=== PATIENT | male | born 1950 | race Caucasian/White ===

== ENCOUNTER 2016-07-15 11:16 | Emergency (ER) ==
[2016-07-15 11:23] VITALS: BP 166/105; TEMP 97.3; BMI 32.5
[2016-07-15] MEDS ORDERED: SODIUM CHLORIDE 1,000 ML IV STA ×2 (11:55→14:39)
[2016-07-15] MEDS ORDERED: ZOFRAN 4 MG/2 ML IVP STA (11:56)
[2016-07-15 12:06] LABS: BASOPHILS % (AUTO) 0.3 % (0.0-3.0); EOSINOPHILS # (AUTO) 0.3 K/ul (0.0-0.7); EOSINOPHILS % (AUTO) 4.1 % (0.0-7.0); HEMOGLOBIN 16.2 g/dl (14.0-18.0); IMMATURE GRANULOCYTE % (AUTO) 0.8 % (0.0-5.0); LYMPHOCYTES # (AUTO) 1.7 K/uL (0.60-3.4); MEAN CORPUSCULAR HEMOGLOBIN 30.3 pg (27.0-31.0); MEAN CORPUSCULAR HGB CONC 35.2 (31.8-35.4); MONOCYTES # (AUTO) 0.5 K/uL (0.4-2.0); MONOCYTES % (AUTO) 7.5 (0-10); NEUTROPHILS # (AUTO) 3.6 K/ul (2.0-6.9); NEUTROPHILS % (AUTO) 59.3; PLATELET COUNT 154 10^3/uL (140-440); RED BLOOD COUNT 5.35 10^6/ul (4.70-6.10); WHITE BLOOD COUNT 6.04 K/ul (4.2-10.2)
[2016-07-15] MEDS ORDERED: ALBUTEROL 0.083% NEB NEB STA (12:11)
[2016-07-15 12:35] LABS: ABG BASE EXCESS 1 (-2.0-2.0); ABG HCO3 25.1 (22.0-26.0); ABG PH 7.451 (7.35-7.45); ABG TCO2 26 (22.0-28.0)
[2016-07-15 12:35] LABS: ALBUMIN 3.8 g/dL (3.4-5.0); ALBUMIN/GLOBULIN RATIO 1.19; ANION GAP 12.4; BILIRUBIN,TOTAL 0.74 mg/dL (0.00-1.20); BUN/CREATININE RATIO 10.76; CALCIUM 9.6 mg/dL (8.2-10.2); CREATININE 1.3 mg/dL (0.60-1.10); POTASSIUM 4.4 mmol/L (3.5-5.1)
[2016-07-15 12:39] LABS: CREATINE KINASE 72 U/L
--- NOTE | 2016-07-15 13:35 | DI ---
EXAM: Chest one view HISTORY: Chest pain COMPARISON: 03/25/2014 TECHNIQUE: Single view of the chest was performed FINDINGS: The lungs are clear. There is no pleural effusion or pneumothorax. The heart is normal in size. The mediastinal contour is normal. There are no acute abnormalities of the bones. There i s cervical spinal fusion hardware. IMPRESSION: No acute cardiopulmonary process.
--- NOTE | 2016-07-15 14:36 | ED.PDOC ---
General ED Provider: Dr. PRATIBHA MEDRANO JR Chief Complaint: Nausea/Vomiting Stated Complaint: NAUSEA/VOMITING/DIARRHEA, COUGH, RIGHT EAR PAIN. [ End ]3 DAYS 97.3 67 16 97% 166/105 07/08 Time Seen by Physician: 12:05 Mode of Arrival: Walk-In Information Source: Patient Exam Limitations: Clinical condition Primary Care Provider: NINO PARIKH Nursing and Triage Documentation Reviewed and Agree: No Review of Systems - Review Of Systems Constitutional: Reports: Malaise, Weakness Eyes: Reports: No symptoms Ears, Nose, Mouth, Throat: Reports: Ear pain Respiratory: Reports: Cough, Short of air, Wheezing (WHEEZING WITH NONPRODUCTIVE COUGH) Cardiac: Reports: Lightheadedness GI: Reports: Abdominal pain, Diarrhea, Nausea, Vomiting : Reports: No symptoms Musculoskeletal: Reports: No symptoms Skin: Reports: No symptoms Neurological: Reports: No symptoms Endocrine: Reports: No symptoms Hematologic/Lymphatic: Reports: No symptoms All Other Systems: Other Past Medical History - Past Medical History Endocrine: Reports: None Cardiovascular: Reports: Hypertension 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) Hematological: Reports: None Gastrointestinal: Reports: Other ( IBS ) Genitourinary: Reports: None Neuro/Psych: Reports: None Musculoskeletal: Reports: None Cancer: Reports: None - Surgical History General Surgical History: Reports: Unknown - Family History Family History: Reports: Unknown - Social History Smoking Status: Former smoker Hx Substance Use: No Alcohol Screening: None Physical Exam - Physical Exam Appearance: Ill-appearing, Obese Ill-appearing: Moderate Pain Distress: Moderate Eyes: ALYSSA, EOMI, Conjunctiva clear ENT: Ears normal, Nose normal, Oropharynx normal Neck: Supple Respiratory: Rhonchi, Wheezes Cardiovascular: RRR, Pulses normal, No rub, No murmur GI/: Soft, No masses, Bowel sounds normal, No Organomegaly, Tender Musculoskeletal: Normal strength, ROM intact, No edema, No calf tenderness Skin: Warm, Dry, Normal color Neurological: Sensation intact, Motor intact, Reflexes intact, Cranial nerves intact, Alert, Oriented Psychiatric: Affect appropriate, Mood appropriate Critical Care Note - Critical Care Note Total Time (mins): 10 Course - Course Hematology/Chemistry: 07/15/16 12:00 07/15/16 12:00 Orders, Labs, Meds: Lab Review 07/15/16 07/15/16 12:00 12:20 WBC 6.04 RBC 5.35 Hgb 16.2 Hct 46.0 MCV 86.0 MCH 30.3 MCHC 35.2 RDW Coeff of Myrna 13.1 Plt Count 154 Immature Gran % (Auto) 0.8 Neut % (Auto) 59.3 Lymph % (Auto) 28.0 [place] % (Auto) 7.5 Eos % (Auto) 4.1 Baso % (Auto) 0.3 Immature Gran # (Auto) 0.1 Neut # 3.6 Lymph # 1.7 [place] # 0.5 Eos # 0.3 Baso # 0.0 D-Dimer (Manual) 518.55 Puncture Site R rad O2 Saturation 99.0 ABG pH 7.451 H ABG pCO2 36.0 ABG pO2 139.0 H ABG HCO3 25.1 ABG Total CO2 26 ABG Base Excess 1 [facility] Test + FiO2 % 21.0 Sodium 141 Potassium 4.4 Chloride 105 Carbon Dioxide 28 Anion Gap 12.4 BUN 14 Creatinine 1.30 H Estimated GFR (MDRD) 55.00 BUN/Creatinine Ratio 10.76 Glucose 96 Calcium 9.6 Total Bilirubin 0.74 AST 21 ALT 29 Alkaline Phosphatase 62 Total Creatine Kinase 72 Troponin I < 0.0100 B-Natriuretic Peptide < 10 Total Protein 7.0 Albumin 3.8 Globulin 3.2 Albumin/Globulin Ratio 1.19 Amylase 72 Lipase 34 Procalcitonin < 0.05 Orders Category Date Time Status ABG DRAW REQUEST Stat CARDIO 07/15/16 12:10 Completed EKG-(ED ONLY) Stat CARDIO 07/15/16 12:09 Completed NEBULIZER TREATMENT Stat CARDIO 07/15/16 12:11 Completed NPO REMINDER: IMAGING ONCE CARE 07/15/16 13:11 Active ED TURKEY EGG GATHERER APPLIED .ONCE EMERGENCY 07/15/16 12:09 Active ED IV/MEDIPORT/POWERPORT .ONCE EMERGENCY 07/15/16 11:55 Active ABG Stat LAB 07/15/16 12:20 Completed AMYLASE Stat LAB 07/15/16 12:00 Completed B-TYPE NATRIURETIC PEPTIDE Stat LAB 07/15/16 12:00 Completed BLOOD CULTURE Stat LAB 07/15/16 12:25 Received CBC W/ AUTO DIFF Stat LAB 07/15/16 12:00 Completed COMPREHENSIVE METABOLIC PANEL Stat LAB 07/15/16 12:00 Completed CREATINE KINASE Stat LAB 07/15/16 12:00 Completed D-DIMER Stat LAB 07/15/16 12:00 Completed LIPASE Stat LAB 07/15/16 12:00 Completed PROCALCITONIN Stat LAB 07/15/16 12:00 Completed TROPONIN I Stat LAB 07/15/16 12:00 Completed URINALYSIS C & S IF INDICATED Stat LAB 07/15/16 11:56 Uncollected 0.9 % Sodium Chloride [Saline Flush] MEDS 07/15/16 11:55 Active 1 syr IVF PRN PRN Albuterol Sulfate 0.083% Neb [Albuterol 0.083% Neb] MEDS 07/15/16 12:11 Discontinued 1 vial NEB ONCE STA Methylprednisolone Sod Succ/Pf [Solu-Medrol 125 mg] MEDS 07/15/16 15:00 Discontinued 125 mg IVP ONCE STA Ondansetron HCl/Pf [Zofran 4 mg/2 ml] MEDS 07/15/16 11:56 Discontinued 4 mg IVP ONCE STA Sodium Chloride 0.9% [Sodium Chloride] 1,000 ml MEDS 07/15/16 14:39 Active IV 200 mls/hr Sodium Chloride 0.9% [Sodium Chloride] 1,000 ml MEDS 07/15/16 11:55 Discontinued IV BOLUS CHEST, 1V AP ONLY Stat RADS 07/15/16 12:09 Completed Medications Generic Name Dose Route Start Last Admin Trade Name Freq PRN Reason Stop Dose Admin Sodium Chloride 1,000 mls @ 200 mls/hr 07/15/16 14:39 07/15/16 14:48 Sodium Chloride IV 07/15/16 19:38 200 mls/hr .Q5H STA Administration Sodium Chloride 1 syr 07/15/16 11:55 Saline Flush IVF PRN PRN To flush IV Discontinued Medications Generic Name Dose Route Start Last Admin Trade Name Freq PRN Reason Stop Dose Admin Albuterol Sulfate 1 vial 07/15/16 12:11 07/15/16 12:23 Albuterol 0.083% Neb NEB 07/15/16 12:12 1 vial ONCE STA Administration Sodium Chloride 1,000 mls @ 1,000 mls/hr 07/15/16 11:55 07/15/16 13:08 Sodium Chloride IV 07/15/16 12:54 1,000 mls/hr BOLUS STA Administration Methylprednisolone Sodium Succinate 125 mg 07/15/16 15:00 Solu-Medrol 125 Mg IVP 07/15/16 15:01 ONCE STA Ondansetron HCl 4 mg 07/15/16 11:56 07/15/16 13:07 Zofran 4 Mg/2 Ml IVP 07/15/16 11:57 4 mg ONCE STA Administration Vital Signs: Temp Pulse Resp BP Pulse Ox 07/15/16 11:19 97.3 F L 67 16 166/105 H 97 Departure - Departure Time of Disposition: 15:27 Disposition: HOME SELF-CARE Discharge Problem: URTI (acute upper respiratory infection) Instructions: Upper Respiratory Infection (ED) Condition: Fair Pt referred to PMD for follow-up: Yes Additional Instructions: PHENERGAN FOR NAUSEA TESSLON FOR COUGH ALBUTEROL THREE TIMES A DAY NEBULIZED FOR THREE DAYS THEN NEEDED RECHECK PMD ONE WEEK RETURN IF SHORT OF BREATH LEG SWELLING OR FEVER OVER 101.0 Prescriptions: Azithromycin [Zithromax] 250 mg PO DIRECTED #6 tablet Benzonatate [Tessalon Perles] 200 mg PO TID PRN #20 capsule PRN Reason: Cough Promethazine HCl [Phenergan Tab] 25 mg PO QID PRN #12 tablet PRN Reason: Nausea / Vomiting Allergies/Adverse Reactions: Allergies codeine Allergy (Intermediate, Unverified 07/15/16 11:17) Rash Penicillins Allergy (Intermediate, Unverified 07/15/16 11:17) Unknown Home Medications: Ambulatory Orders Metoprolol Succinate 100 mg PO DAILY 10/05/13 Pantoprazole Sodium [Protonix] 40 mg PO DAILY 04/10/15 Azithromycin [Zithromax] 250 mg PO DIRECTED #6 tablet 07/15/16 Benzonatate [Tessalon Perles] 200 mg PO TID PRN #20 capsule 07/15/16 Promethazine HCl [Phenergan Tab] 25 mg PO QID PRN #12 tablet 07/15/16
[2016-07-15] MEDS ORDERED: SOLU-MEDROL 125 MG IVP STA (15:00)
== END 2016-07-15 15:59 | disposition home or self-care (01) ==
LOC: ED 11:16
DX: J06.9 Acute upper respiratory infection, unspecified (principal); R06.02 Shortness of breath; I10 Essential (primary) hypertension; R11.2 Nausea with vomiting, unspecified; R19.7 Diarrhea, unspecified; Z79.899 Other long term (current) drug therapy
CPT/HCPCS: 36415; 80053; 82150; 82550; 82803; 83690; 83880; 84145; 84484; 85025; 85379; 87040; 93005; 93010; 94640; 96361; 96374; 99283

== ENCOUNTER 2016-07-23 11:18 | Outpatient (CLI) | END 2016-07-23 11:19 | disposition home or self-care (01) | LOC: LAB 11:18 | PROVIDERS: ATTEND Family Medicine | DX: R19.7 Diarrhea, unspecified (principal) | CPT/HCPCS: 87015; 87045; 87493; 87899 ==

== ENCOUNTER 2018-05-07 23:56 | Emergency (ER) ==
[2018-05-08] MEDS ORDERED: DUONEB NEB STA (00:20)
[2018-05-08] MEDS ORDERED: TESSALON PERLES PO STA (00:20)
--- NOTE | 2018-05-08 01:48 | ED.PDOC ---
General ED Provider: Dr. DARYA MILLS Chief Complaint: Cough Stated Complaint: patient complains of 4 day history of cough. Was prescribed Azithromycin and Steroids today but has not taken them. [place] short of breath hence came to the ER. Also complains of chest tightness. Time Seen by Physician: 00:15 Information Source: Patient, Family Primary Care Provider: NINO PARIKH Nursing and Triage Documentation Reviewed and Agree: Yes Does patient meet sepsis criteria?: No If yes, has appropriate treatment been initiated?: No System Inflammatory Response Syndrome: Not Applicable Sepsis Protocol: For patient's 13 years and over: Temp is 96.8 and below OR 101 and greater Pulse >90 BPM Resp >20/minute Acutely Altered Mental Status Are patient's symptoms suggestive of a new infection, such as: -Pneumonia -Skin, Soft Tissue -Endocarditis -UTI -Bone, Joint Infection -Implantable Device -Acute Abdominal Infection -Wound Infection -Meningitis -Blood Stream Catheter Infection -Unknown Respiratory Complaint Exam - Shortness of Air Complaint/Exam Onset/Duration: 4 days Symptoms Are: Still present Timing: Constant Initial Severity: Moderate Current Severity: Moderate Character: Reports: Dyspnea at rest Aggravating: Reports: Weather Alleviating: Reports: None Associated Signs and Symptoms: Reports: Cough, Wheezing Related History: Denies: Similar episode, Allergic reaction, Recent trauma History of Healthcare-Acquired Pneumonia: No Pulmonary Embolism Risk Factors: Reports: None Cardiac Risk Factors: Reports: None Pseudomonas Risk Factors: Reports: None Tuberculosis Risk Factors: Reports: None Home Oxygen Use: No Recent Stress Test: No Recent Echo/LV Function: No Stridor Present: No Tracheal Deviation: No Subcutaneous Emphysema: No Accessory Muscle Use: No Retractions: Not Present Diminished Breath Sounds: No Prolonged Expiratory Phase: No Unable to Speak Full Sentences: No Fatigue: No Leg Swelling: No Bernadette's Sign Present: No Grunting Respirations: No Kussmaul Respirations: No Differential Diagnoses: Pneumonia, Bronchitis Review of Systems - Review Of Systems Constitutional: Reports: No symptoms Eyes: Reports: No symptoms Ears, Nose, Mouth, Throat: Reports: No symptoms Respiratory: Reports: Cough, Short of air Cardiac: Reports: No symptoms GI: Reports: No symptoms : Reports: No symptoms Musculoskeletal: Reports: No symptoms Skin: Reports: No symptoms Neurological: Reports: Anxiety Endocrine: Reports: No symptoms Hematologic/Lymphatic: Reports: No symptoms All Other Systems: Reviewed and Negative Past Medical History - Past Medical History Endocrine: Reports: None Cardiovascular: Reports: Hypertension 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) Hematological: Reports: None Gastrointestinal: Reports: Other ( IBS ) Genitourinary: Reports: None Neuro/Psych: Reports: None Musculoskeletal: Reports: None Cancer: Reports: None - Surgical History General Surgical History: Reports: None - Family History Family History: Reports: None - Social History Smoking Status: Former smoker Hx Substance Use: No Alcohol Screening: None Physical Exam - Physical Exam Appearance: Well-appearing, Obese Neck: Supple Respiratory: Wheezes (expiratory wheezing ) GI/: Soft, Nontender, No masses, Bowel sounds normal, No Organomegaly Musculoskeletal: Normal strength, ROM intact, No edema, No calf tenderness Skin: Warm, Dry, Normal color Neurological: Sensation intact, Motor intact, Reflexes intact, Cranial nerves intact, Alert, Oriented Psychiatric: Anxious Critical Care Note - Critical Care Note Total Time (mins): 0 Course - Course Hematology/Chemistry: 05/08/18 00:40 05/08/18 00:40 Orders, Labs, Meds: Lab Review 05/08/18 05/08/18 05/08/18 00:40 00:40 00:40 WBC 12.09 H RBC 5.19 Hgb 15.2 Hct 44.3 MCV 85.4 MCH 29.3 MCHC 34.3 RDW Coeff of Myrna 42.0 H Plt Count 131 L Immature Gran % (Auto) 0.1 Neut % (Auto) 79.8 Lymph % (Auto) 11.7 [place] % (Auto) 6.9 Eos % (Auto) 0.2 Baso % (Auto) 0.2 Immature Gran # (Auto) 1.2 H Neut # (Auto) 9.7 H Lymph # (Auto) 1.4 [place] # (Auto) 0.8 Eos # (Auto) 0.0 Baso # (Auto) 0.0 D-Dimer (Manual) 238.80 Sodium 136.0 Potassium 4.47 Chloride 98.8 Carbon Dioxide 23.9 Anion Gap 17.77 BUN 27.7 H Creatinine 1.22 H Estimated GFR (MDRD) 59.00 BUN/Creatinine Ratio 22.70 Glucose 176.3 H Lactic Acid Calcium 9.37 Total Bilirubin 0.55 AST 29.4 ALT 45.3 Alkaline Phosphatase 82.6 Total Creatine Kinase 250.2 H CK-MB (CK-2) 2.730 H CK-MB (CK-2) % 1.0900 Troponin I 0.023 NT-Pro-B Natriuret Pep 38.500 Total Protein 7.07 Albumin 4.19 Globulin 2.88 Albumin/Globulin Ratio 1.45 Procalcitonin 05/08/18 05/08/18 00:40 00:40 WBC RBC Hgb Hct MCV MCH MCHC RDW Coeff of Myrna Plt Count Immature Gran % (Auto) Neut % (Auto) Lymph % (Auto) [place] % (Auto) Eos % (Auto) Baso % (Auto) Immature Gran # (Auto) Neut # (Auto) Lymph # (Auto) [place] # (Auto) Eos # (Auto) Baso # (Auto) D-Dimer (Manual) Sodium Potassium Chloride Carbon Dioxide Anion Gap BUN Creatinine Estimated GFR (MDRD) BUN/Creatinine Ratio Glucose Lactic Acid 1.94 Calcium Total Bilirubin AST ALT Alkaline Phosphatase Total Creatine Kinase CK-MB (CK-2) CK-MB (CK-2) % Troponin I NT-Pro-B Natriuret Pep Total Protein Albumin Globulin Albumin/Globulin Ratio Procalcitonin < 0.05 Orders Category Date Time Status EKG-(ED ONLY) Stat CARDIO 05/08/18 02:23 Completed NEBULIZER TREATMENT Stat CARDIO 05/08/18 00:20 Completed BLOOD CULTURE Stat LAB 05/08/18 01:00 Ordered CBC W/ AUTO DIFF Stat LAB 05/08/18 00:40 Completed COMPREHENSIVE METABOLIC PANEL Stat LAB 05/08/18 00:40 Completed CREATINE KINASE Stat LAB 05/08/18 00:40 Completed D-DIMER Stat LAB 05/08/18 00:40 Completed LACTIC ACID Stat LAB 05/08/18 00:40 Completed NT-PROBNP Stat LAB 05/08/18 00:40 Completed PROCALCITONIN Stat LAB 05/08/18 00:40 Completed TROPONIN I Stat LAB 05/08/18 00:40 Completed Benzonatate [Tessalon Perles] MEDS 05/08/18 00:20 Discontinued 200 mg PO ONCE STA Dexamethasone 4 mg/ml Inj [Decadron 4 mg/ml Sdv] MEDS 05/08/18 02:07 Discontinued 8 mg IM ONCE STA Ipratropium/Albuterol Neb [Duoneb] MEDS 05/08/18 00:20 Discontinued 1 vial NEB ONCE STA CHEST, 2 VIEWS PA & LAT Stat RADS 05/08/18 00:30 Completed Medications Discontinued Medications Generic Name Dose Route Start Last Admin Trade Name Freq PRN Reason Stop Dose Admin Albuterol/Ipratropium 1 vial 05/08/18 00:20 05/08/18 00:25 Duoneb NEB 05/08/18 00:21 1 vial ONCE STA Administration Benzonatate 200 mg 05/08/18 00:20 05/08/18 00:30 Tessalon Perles PO 05/08/18 00:21 200 mg ONCE STA Administration Dexamethasone Sodium Phosphate 8 mg 05/08/18 02:07 05/08/18 02:17 Decadron 4 Mg/Ml Sdv IM 05/08/18 02:08 8 mg ONCE STA Administration Vital Signs: Temp Pulse Resp BP Pulse Ox 05/08/18 02:19 97.5 F L 48 L 20 185/96 H 98 05/08/18 00:45 51 L 16 158/89 H 97 05/08/18 00:31 56 L 16 154/92 H 99 05/08/18 00:15 48 L 19 170/92 H 97 05/08/18 00:05 91 H 50 H 190/91 H 97 Departure - Departure Time of Disposition: 01:52 Disposition: HOME SELF-CARE Discharge Problem: Bronchitis Instructions: Acute Bronchitis (ED) Condition: Stable Pt referred to PMD for follow-up: Yes IPMP verified?: No Additional Instructions: Continue home Steroids and Antibiotics Take Tessalone pearls as needed Us Albuterol as needed for wheezing. Prescriptions: Albuterol Sulfate [Proair Hfa] 2 puff IH Q6H PRN #1 puff PRN Reason: Wheezing Benzonatate [Tessalon Perles] 100 mg PO TID PRN #25 capsule PRN Reason: Cold Symptons Allergies/Adverse Reactions: Allergies codeine Allergy (Intermediate, Unverified 07/15/16 11:17) Rash Penicillins Allergy (Intermediate, Unverified 07/15/16 11:17) Unknown Home Medications: Ambulatory Orders Metoprolol Succinate 100 mg PO DAILY 10/05/13 Pantoprazole Sodium [Protonix] 40 mg PO DAILY 04/10/15 Albuterol Sulfate 0.083% Neb [Albuterol 0.083% Neb] 1 vial NEB RTQ4H #30 vial.neb 07/15/16 Azithromycin [Zithromax] 250 mg PO DIRECTED #6 tablet 07/15/16 Benzonatate [Tessalon Perles] 200 mg PO TID PRN #20 capsule 07/15/16 Promethazine HCl [Phenergan Tab] 25 mg PO QID PRN #12 tablet 07/15/16 Albuterol Sulfate [Proair Hfa] 2 puff IH Q6H PRN #1 puff 05/08/18 Benzonatate [Tessalon Perles] 100 mg PO TID PRN #25 capsule 05/08/18
[2018-05-08] MEDS ORDERED: DECADRON 4 MG/ML SDV IM STA (02:07)
[2018-05-08 02:23] VITALS: BP 185/96; TEMP 97.5; BMI 32.3
--- NOTE | 2018-05-08 11:03 | DI ---
EXAM: Two-view chest HISTORY: Cough congestion COMPARISON: Single-view chest 07/15/2016 FINDINGS: The heart is normal in size. Atherosclerotic changes are seen involving the aortic arch. The lungs are clear bilaterally. Degenerative changes are noted throughout the thoracic spine. Pos top fusion changes are noted anteriorly within the lower cervical spine. IMPRESSION: No evidence of active pulmonary disease.
== END 2018-05-08 02:35 | disposition home or self-care (01) ==
LOC: ED 23:56
DX: J40 Bronchitis, not specified as acute or chronic (principal); I10 Essential (primary) hypertension; R06.02 Shortness of breath; Z87.19 Personal history of other diseases of the digestive system
CPT/HCPCS: 36415; 80053; 82550; 82553; 83605; 83880; 84145; 84484; 85025; 85379; 87040; 93005; 93010; 94640; 96372; 99283